=== PATIENT | female | born 1965 | race Caucasian/White ===

== ENCOUNTER 2021-05-29 17:15 | Emergency (ER) | payer OTHER ==
[2021-05-29 17:24] VITALS: TEMP 99.1; BMI 18.0
[2021-05-29] MEDS ORDERED: SODIUM CHLORIDE 1,000 ML IV STA ×2 (17:28→18:39)
[2021-05-29] MEDS ORDERED: METOCLOPRAMIDE HCL INJECTION 10 MG/2 ML VIAL IVPB ONE (17:28)
[2021-05-29] MEDS ORDERED: METOCLOPRAMIDE HCL INJECTION 10 MG/2 ML VIAL ONE (17:31)
[2021-05-29] MEDS ORDERED: DEXAMETHASONE SOD PHOSPHATE 10 MG/1 ML VIAL IVPUSH ONE (18:04)
[2021-05-29] MEDS ORDERED: ACETAMINOPHEN/CAFFEINE/BUTALBITAL 1 TAB PO ONE (18:04)
[2021-05-29] MEDS ORDERED: ACETAMINOPHEN/CAFFEINE/BUTALBITAL 1 TAB ONE (18:22)
[2021-05-29] MEDS ORDERED: DEXAMETHASONE SOD PHOSPHATE 10 MG/1 ML VIAL ONE (18:22)
[2021-05-29] MEDS ORDERED: VALSARTAN 80 MG TABLET PO ONE (19:24)
[2021-05-29] MEDS ORDERED: NITROGLYCERIN SUBLINGUAL 1/150 0.4 MG TAB SL ONE ×2 (19:24→19:32)
[2021-05-29] MEDS ORDERED: morphine SULFATE IMMEDIATE RELEASE 30 MG TAB PO ONE ×2 (19:33→23:50)
[2021-05-29] MEDS ORDERED: NITROGLYCERIN SUBLINGUAL 1/150 0.4 MG TAB ONE (19:37)
[2021-05-29] MEDS ORDERED: morphine SULFATE IMMEDIATE RELEASE 30 MG TAB ONE (19:38)
[2021-05-29 20:14] VITALS: BP 232/142; PULSE 83
[2021-05-29 20:30] LABS: WHITE BLOOD COUNT 7.4 K/mm3 (4.0-10.8)
[2021-05-29 20:32] LABS: INR 1.08 (0.82-1.09)
[2021-05-29 20:36] LABS: ALBUMIN 4.3 g/dl (3.4-5.0); CALCIUM 8.9 mg/dl (8.5-10); CREATININE 1.1 mg/dl (0.55-1.3); TOT PROT 6.5 g/dl (6.4-8.2)
[2021-05-29 20:40] LABS: BASO % 2.7 % (0-2.0); EOS % 0.3 % (0-4.5); HEMATOCRIT 36.8 % (32.4-45.2); HEMOGLOBIN 12.5 GM/dl (10.7-15.3); LYMPH % 6.2 % (8-40); MCH 29.6 pg (25.7-33.7); MCHC 34.1 g/dl (32.0-36.0); MEAN CELL VOLUME 86.8 fl (80-96); MEAN PLT VOLUME 8.1 fl (7.5-11.1); MONO % 3.9 % (3.8-10.2); NEUT % 86.9 % (42.8-82.8); PLATELET COUNT 192 10^3/uL (134-434); RBC 4.24 M/mm3 (3.60-5.2); RDW 12.9 % (11.6-15.6)
== END 2021-05-29 20:20 | disposition left against medical advice (07) ==
LOC: FER 17:15
PROC: 3E033NZ Introduction of Analgesics, Hypnotics, Sedatives into Peripheral Vein, Percutaneous Approach (ICD-10-PCS; principal; 2021-05-29)
PROC: 3E033GC Introduction of Other Therapeutic Substance into Peripheral Vein, Percutaneous Approach (ICD-10-PCS; 2021-05-29)
PROC: 3E0337Z Introduction of Electrolytic and Water Balance Substance into Peripheral Vein, Percutaneous Approach (ICD-10-PCS; 2021-05-29)
PROC: 3E0337Z Introduction of Electrolytic and Water Balance Substance into Peripheral Vein, Percutaneous Approach (ICD-10-PCS; 2021-05-29)
DX: R51.9 Headache, unspecified (principal); I10 Essential (primary) hypertension
CPT/HCPCS: 36415; 70450-TC; 71045-TC-FY; 80053; 82550; 84484; 85025; 85610; 99285-25; J1100